=== PATIENT | female | born 2000 | race Two or more races ===

== ENCOUNTER 2022-09-17 13:47 | Emergency (ER) | payer MEDICAID ==
[2022-09-17] MEDS ORDERED: CEPH-510 PO (19:49)
[2022-09-17] MEDS ORDERED: NITR-87 PO (20:22)
== END 2022-09-17 15:29 | disposition left against medical advice (07) ==
LOC: ER 13:47
DX: M79.10 Myalgia, unspecified site (principal); Z53.21 Procedure and treatment not carried out due to patient leaving prior to being seen by health care provider

== ENCOUNTER 2022-09-17 19:12 | Emergency (ER) | payer MEDICAID ==
[~2022-09-17] VITALS: Ht 167.6 cm; Wt 66.0 kg
[2022-09-17 19:12] VITALS: BP 117/60
[2022-09-17] MEDS ORDERED: CEPH-510 PO (19:49)
[2022-09-17] MEDS ORDERED: NITR-87 PO (20:22)
[2022-09-17] MEDS ORDERED: levoFLOXacin 500 MG TAB PO ONE (20:30)
[2022-09-17] MEDS ORDERED: NITROFURANTOIN 100 mg CAP PO ONE (20:30)
[2022-09-17 21:55] LABS: Urine Specific Gravity 1.034 (1.001-1.035)
[2022-09-17 21:56] LABS: Urine Blood 2+ /uL (Negative)
[2022-09-17 22:02] LABS: Urine WBC 30 /hpf (0 - 5)
[2022-09-17 22:03] LABS: Urine Bacteria MOD /hpf (None Seen)
[2022-09-17 22:04] LABS: Urine Amorphous Sediment Moderate /hpf
== END 2022-09-18 01:53 | disposition home or self-care (01) ==
LOC: ER 19:15
DX: O23.41 Unspecified infection of urinary tract in pregnancy, first trimester (principal); N39.0 Urinary tract infection, site not specified; Z79.899 Other long term (current) drug therapy; Z88.0 Allergy status to penicillin; Z3A.00 Weeks of gestation of pregnancy not specified
CPT/HCPCS: 36415; 76801; 81001; 81025; 84702

== ENCOUNTER 2022-10-29 17:47 | Emergency (ER) | payer MEDICAID ==
[~2022-10-29] VITALS: Ht 167.6 cm; Wt 63.5 kg
[~2022-10-29 17:47] MED LIST: NITR-87 PO
[2022-10-29] MEDS ORDERED: SODIUM CHLORIDE 0.9% 1,000 ML IV ONE (18:30)
[2022-10-29 19:25] LABS: Basophils # (auto) 0 10 ^3/uL (0-0.2); Basophils % (auto) 0.6 % (0.0-2.0); Eosinophils # (auto) 0 10 ^3/uL (0-0.8); Eosinophils % (auto) 0.5 % (0.0-7.0); Hematocrit 39.8 % (36.0-46.0); Hemoglobin 13.5 g/dL (12.2-16.2); Lymphocytes # (auto) 1.3 10 ^3/uL (0.4-5.4); Lymphocytes % (auto) 17.7 % (10.0-50.0); Mean Corpuscular Hemoglobin 29.5 pg (28.0-32.0); Mean Corpuscular Hgb Conc. 33.8 g/dL (32.0-36.0); Mean Corpuscular Volume 87.1 fL (80.0-100.0); Monocytes # (auto) 0.5 10 ^3/uL (0-1.3); Monocytes % (auto) 6.7 % (0.0-12.0); Neutrophils # (auto) 5.6 10 ^3/uL (1.6-8.6); Neutrophils % (auto) 74.5 % (37.0-80.0); Nucleated Red Blood Cells % 0.1 %; Red Blood Cells 4.57 10^6/uL (4.0-5.20); Red Cell Distribution Width 12.1 % (11.8-14.3); White Blood Cell 7.5 10^3/uL (4.4-10.8)
[2022-10-29 19:41] LABS: Albumin 3.7 g/dL (3.4-5.0); BUN/Creatinine Ratio 10.7; Calcium 9.7 mg/dL (8.5-10.1); Potassium 4.3 mmol/L (3.5-5.1)
[2022-10-29 19:48] LABS: Bilirubin, Total 0.3 mg/dL (0.2-1.0); Total Protein 7.3 g/dL (6.4-8.2)
[2022-10-29] MEDS ORDERED: DOXY10TA OR (21:03)
[2022-10-29 23:41] VITALS: BP 120/69
== END 2022-10-29 23:43 | disposition home or self-care (01) ==
LOC: ER 17:47
DX: O26.891 Other specified pregnancy related conditions, first trimester (principal); R55 Syncope and collapse; E86.0 Dehydration; Z3A.10 10 weeks gestation of pregnancy
CPT/HCPCS: 36415; 76801; 80053; 82010; 84702; 85025; 93005

== ENCOUNTER 2022-12-01 23:58 | Emergency (ER) | payer MEDICAID ==
[~2022-12-01] VITALS: Ht 162.6 cm; Wt 55.0 kg
[~2022-12-01 23:58] MED LIST changes: +DOXY10TA OR
[2022-12-02 01:42] LABS: Basophils # (auto) 0.1 10 ^3/uL (0-0.2); Basophils % (auto) 0.5 % (0.0-2.0); Eosinophils # (auto) 0.1 10 ^3/uL (0-0.8); Eosinophils % (auto) 0.4 % (0.0-7.0); Hematocrit 34.3 % (36.0-46.0); Hemoglobin 11.6 g/dL (12.2-16.2); Lymphocytes # (auto) 1.3 10 ^3/uL (0.4-5.4); Lymphocytes % (auto) 9.4 % (10.0-50.0); Mean Corpuscular Hemoglobin 29.3 pg (28.0-32.0); Mean Corpuscular Hgb Conc. 33.9 g/dL (32.0-36.0); Mean Corpuscular Volume 86.4 fL (80.0-100.0); Monocytes # (auto) 0.7 10 ^3/uL (0-1.3); Monocytes % (auto) 5.5 % (0.0-12.0); Neutrophils # (auto) 11.5 10 ^3/uL (1.6-8.6); Neutrophils % (auto) 84.2 % (37.0-80.0); Nucleated Red Blood Cells % 0.1 %; Red Blood Cells 3.97 10^6/uL (4.0-5.20); Red Cell Distribution Width 12.7 % (11.8-14.3); White Blood Cell 13.7 10^3/uL (4.4-10.8)
[2022-12-02 01:47] LABS: Albumin 3.1 g/dL (3.4-5.0); BUN/Creatinine Ratio 10.9; Calcium 8.4 mg/dL (8.5-10.1); Potassium 3.8 mmol/L (3.5-5.1)
[2022-12-02 01:53] LABS: Bilirubin, Total 0.3 mg/dL (0.2-1.0); Total Protein 6.1 g/dL (6.4-8.2)
[2022-12-02 01:56] LABS: Urine Bacteria FEW /hpf (None Seen); Urine Blood Negative /uL (Negative); Urine Hyaline Cast FEW /lpf (0 - 2); Urine Mucus FEW (None Seen); Urine Specific Gravity 1.024 (1.001-1.035); Urine WBC 32 /hpf (0 - 5)
[2022-12-02] MEDS ORDERED: MORPHINE SULFATE 4 MG/ML SYR/VIAL IV ONE (03:15)
[2022-12-02] MEDS ORDERED: ONDANSETRON HCL 4 MG/2 ML VIAL IV ONE (03:15)
[2022-12-02] MEDS ORDERED: NITR-87 PO (04:38)
[2022-12-02] MEDS ORDERED: cefTRIAXone W LIDOCAINE 1 GM IM IM ONE (04:45)
[2022-12-02] MEDS ORDERED: cefTRIAXone 1GM/50ML D5W 50 ML IV ONE (05:00)
[2022-12-02 05:45] VITALS: BP 110/62
== END 2022-12-02 05:45 | disposition home or self-care (01) ==
LOC: EDBD 23:58 → ER 23:58
DX: O23.42 Unspecified infection of urinary tract in pregnancy, second trimester (principal); N39.0 Urinary tract infection, site not specified; D72.829 Elevated white blood cell count, unspecified; R10.2 Pelvic and perineal pain; Z79.899 Other long term (current) drug therapy; Z79.2 Long term (current) use of antibiotics; Z88.0 Allergy status to penicillin; Z3A.14 14 weeks gestation of pregnancy
CPT/HCPCS: 36415; 76805; 80053; 81001; 84702; 85025; 96365; 96375; 99285; J0696; J2270; J2405

== ENCOUNTER 2024-05-25 10:26 | Emergency (ER) | payer MEDICAID ==
[~2024-05-25] VITALS: Ht 167.6 cm; Wt 70.9 kg
[~2024-05-25 10:26] MED LIST changes: +CLIN1CAP70 PO; +IBUP1TAB5 PO; +MUPI2OIN2 EX
[2024-05-25 15:21] VITALS: BP 125/78; PULSE 79; RESP 19; TEMP 98; O2SAT 97
== END 2024-05-25 16:13 | disposition home or self-care (01) ==
LOC: ER 10:34
DX: O26.892 Other specified pregnancy related conditions, second trimester (principal); R10.2 Pelvic and perineal pain; Z3A.18 18 weeks gestation of pregnancy; Z88.0 Allergy status to penicillin
CPT/HCPCS: 36415; 76805; 76817; 84702

== ENCOUNTER → 2024-08-03 | Outpatient (CLI) | payer MEDICAID ==
[2024-08-03 13:25] LABS: Basophils # (auto) 0 10 ^3/uL (0-0.2); Basophils % (auto) 0.5 % (0.0-2.0); Eosinophils # (auto) 0.1 10 ^3/uL (0-0.8); Eosinophils % (auto) 1.8 % (0.0-7.0); Hemoglobin 11.3 g/dL (12.2-16.2); Lymphocytes # (auto) 1.9 10 ^3/uL (0.4-5.4); Lymphocytes % (auto) 32.6 % (10.0-50.0); Mean Corpuscular Hemoglobin 30.8 pg (28.0-32.0); Mean Corpuscular Hgb Conc. 34.3 g/dL (32.0-36.0); Mean Corpuscular Volume 89.8 fL (80.0-100.0); Monocytes # (auto) 0.5 10 ^3/uL (0-1.3); Monocytes % (auto) 8.7 % (0.0-12.0); Neutrophils # (auto) 3.3 10 ^3/uL (1.6-8.6); Neutrophils % (auto) 56.4 % (37.0-80.0); Nucleated Red Blood Cells % 0.1 %; Platelet Count (auto) 244 10^3/uL (140-450); Red Blood Cells 3.68 10^6/uL (4.0-5.20); Red Cell Distribution Width 12.5 % (11.8-14.3); White Blood Cell 5.9 10^3/uL (4.4-10.8)
[2024-08-03 14:18] LABS: Amphetamine Screen, Urine Neg (NEGATIVE)
[2024-08-03 14:19] LABS: Barbiturate Scree,Urine Neg (NEGATIVE); Benzodiazephine Screen, Urine Neg (NEGATIVE); Cannabinoid Screen, Urine Neg (NEGATIVE); Cocaine Screen, Urine Neg (NEGATIVE); Opiate Scree,Urine Neg (NEGATIVE); Phencyclidine Screen, Urine Neg (NEGATIVE)
[2024-08-03 14:24] LABS: Alanine Aminotransferase 14 U/L (7-40); Albumin 3.7 g/dL (3.2-4.8); Alkaline Phosphatase 103 U/L (46-116); Anion Gap 6 (5-15); Aspartate Aminotransferase 15 U/L (13-40); Calcium 9.4 mg/dL (8.7-10.4); Carbon Dioxide 27 mmol/L (20-31); Chloride 107 mmol/L (98-107); Cholesterol 184 mg/dL (< 200); Glucose 76 mg/dL (74-106); LDL Cholesterol 110 mg/dL (< 100); Potassium 3.5 mmol/L (3.5-5.1); Sodium 140 mmol/L (136-145); Triglycerides 111 mg/dL (< 150)
[2024-08-03 14:25] LABS: BUN/Creatinine Ratio 7.9 (10.0-20.0); Bilirubin, Total 0.3 mg/dL (0.2-1.0); Blood Urea Nitrogen < 5 mg/dL (9-23); HDL Cholesterol 63 mg/dL (40-59); Thyroid Stimulating Hormone 1.35 uIU/mL (0.55-4.78); Total Protein 6.3 g/dL (5.7-8.2)
[2024-08-03 14:33] LABS: Beta HCG, Quantitative 4965.2 mIU/mL (1.5-4.2)
[2024-08-04 08:07] LABS: RPR Non Reactive (Non Reactive)
[2024-08-04 10:06] LABS: Varicella Zoster IgG Antibody Reactive (Non Reactive)
== END | disposition home or self-care (01) ==
LOC: LAB 12:28
DX: Z11.3 Encounter for screening for infections with a predominantly sexual mode of transmission (principal)
CPT/HCPCS: 36415; 80053; 80061; 80307; 83036; 84439; 84443; 84702; 85025; 86592; 86703; 86762; 86787; 86850; 86900; 86901; 87086; 87340; 87902

== ENCOUNTER 2024-09-18 01:08 | Observation (INO) | payer MEDICAID ==
[~2024-09-18] VITALS: Ht 167.6 cm; Wt 81.6 kg
[2024-09-18] MEDS: TERBUTALINE SULFATE 1 MG/ML 1ML VIAL SC SCH (02:32)
[2024-09-18] MEDS: NIFEdipine 10 MG CAP PO ONE (03:31)
[2024-09-18] MEDS ORDERED: NIFE10CA52 PO (04:05)
--- NOTE | 2024-09-18 12:04 | DVHDS2 ---
Physician Discharge Progress N Final Diagnosis: ucs Operations or Procedures: Operations or Procedures nst,sono Condition on Discharge: Good Disposition: Home Discharge Instructions: Diet: Regular Activity: Light activity Medications: na Follow Up Care: Specialist: 2d Discharge Statement: "Patient was advised to return to the ER or call 911 if any headaches, dizziness, shortness of breath, chest pain, abdominal pain, bleeding, fevers, or worsening of medical condition. Patient was counseled about treatment plan, medications, possible side effects, patientverbalized understanding. All questions were answered to the best of my ability. This discharge took greater then 30 minutes in planning, reviewing documentation, counseling the patient, and discussing with other team members." DANYA PALMA DO Sep 18, 2024 12:04
== END 2024-09-18 04:36 | disposition home or self-care (01) ==
LOC: LDRP 01:08
PROVIDERS: ADMIT Obstetrics & Gynecology; ATTEND Obstetrics & Gynecology
DX: O62.9 Abnormality of forces of labor, unspecified (principal); O26.893 Other specified pregnancy related conditions, third trimester; R10.9 Unspecified abdominal pain; Z3A.35 35 weeks gestation of pregnancy; Z88.0 Allergy status to penicillin; Z79.899 Other long term (current) drug therapy
CPT/HCPCS: 59025; 81002; 94760; 96372; G0378; J3105